=== PATIENT | female | born 1995 | race Caucasian/White ===

== ENCOUNTER 2020-12-01 15:23 | Emergency (ER) | payer MEDICAID ==
[~2020-12-01] VITALS: Ht 162.6 cm; Wt 54.5 kg
[2020-12-01 16:50] VITALS: BP 147/81
== END 2020-12-01 17:57 | disposition home or self-care (01) ==
LOC: ER 15:25
DX: S06.0X0A Concussion without loss of consciousness, initial encounter (principal); F12.90 Cannabis use, unspecified, uncomplicated; Z60.2 Problems related to living alone; Z88.6 Allergy status to analgesic agent; W18.39XA Other fall on same level, initial encounter; Y93.89 Activity, other specified; Y92.89 Other specified places as the place of occurrence of the external cause; Y99.8 Other external cause status
CPT/HCPCS: 70450; 99284